=== PATIENT | male | born 1965 | race Caucasian/White ===

== ENCOUNTER → 2018-01-24 | Day surgery (SDC) | payer MEDICARE, MEDICAID ==
[2018-01-23 15:55] VITALS: BMI 23.0
[~2018-01-24] MED LIST: Ketamine 50 MG/ML VIAL ONE; Midazolam HCl 2 mg/2 ml Vial ONE; PROPOFOL 200 MG/20 ML VIAL ONE
--- NOTE | 2018-01-24 15:26 | OP ---
DATE OF PROCEDURE: 01/24/2018 PROCEDURE: Colonoscopy (diagnostic). INDICATION FOR PROCEDURE: Screening for malignant neoplasm of the colon. DESCRIPTION OF PROCEDURE: After the risks and the benefits of the procedure were explained to the constantin lombardo's surrogate including risks of bleeding, infection, perforation, reaction to anesthesia and/or pain, informed consent was obtained. The patient was then taken to the endoscopy suite where deep se dation was administered via propofol and ketamine via anesthesia support. The standard colonoscope w as then introduced into the rectum after external examination and advanced to the cecum with some dif ficulty that required manual pressure on the abdomen to facilitate passage of the scope. The quality of the prep was fair; however, with aggressive irrigation and suctioning, the prep was converted to good to excellent. The patient tolerated the procedure well with no immediate perioperative complica tions. DIGITAL RECTAL EXAMINATION: Normal rectal examination. COLON FINDINGS: A significant amount of liquid stool was seen throughout the entire colon that was a menable to aggressive irrigation and suctioning converting a fair prep to a good/excellent prep of th e mucosa seen. Normal appearing mucosa was seen at the appendiceal orifice and ileocecal valve and w ithin the cecum. Normal appearing mucosa was also seen the ascending, transverse, descending, and si gmoid colon. Normal mucosa was also seen in the rectum with normal findings on rectal retroflexion. IMPRESSION: Normal colonoscopy with no evidence of polyps or neoplasm. RECOMMENDATIONS: 1. Follow up in the GI Clinic as needed for constipation. 2. We would recommend repeat colonoscopy in 10 years as part of screening for colorectal neoplasm.
== END ==
LOC: SDC 09:58
PROVIDERS: ATTEND Internal Medicine
PROC: 0DJD8ZZ Inspection of Lower Intestinal Tract, Via Natural or Artificial Opening Endoscopic (ICD-10-PCS; principal; 2018-01-24)
DX: Z12.11 Encounter for screening for malignant neoplasm of colon (principal); G47.33 Obstructive sleep apnea (adult) (pediatric); Q87.2 Congenital malformation syndromes predominantly involving limbs; F73 Profound intellectual disabilities; F50.89 Other specified eating disorder; Z79.899 Other long term (current) drug therapy
CPT/HCPCS: J2250; J2704

== ENCOUNTER 2019-05-30 10:50 | Outpatient (CLI) | payer MEDICARE, MEDICAID | END 2019-05-30 10:51 | disposition home or self-care (01) | PROVIDERS: ATTEND Family Medicine | DX: I69.191 Dysphagia following nontraumatic intracerebral hemorrhage (principal); R13.12 Dysphagia, oropharyngeal phase; R63.3 Feeding difficulties | CPT/HCPCS: 74230 ==

== ENCOUNTER 2019-10-22 07:10 | Day surgery (SDC) | payer MEDICARE, MEDICAID ==
[2019-10-21 11:40] VITALS: BMI 20.9
[2019-10-22] MEDS ORDERED: Ketamine 50 MG/ML (10ML VIAL) ONE (08:42)
--- NOTE | 2019-10-22 11:35 | OP ---
DATE OF PROCEDURE: 10/22/2019 PROCEDURE PERFORMED: Esophagogastroduodenoscopy (diagnostic). INDICATION FOR PROCEDURE: Hematemesis (the patient with two possible bouts of hematemesis in 07/2019). DESCRIPTION OF PROCEDURE: After the risks and benefits of the procedure were explained to the patient's surrogate including risks of bleeding, infection, perforation, reactions to anesthesia, aspiration and/or pain, informed consent was obtained. The patient was then taken to the endoscopy suite, where after being placed in the left lateral decubitus position, deep sedation was administered via ketamine and propofol via Anesthesia support. Once adequate sedation was achieved, the standard gastroscope was introduced into the mouth with intubation of the esophagus, stomach, and the proximal small intestines with the findings listed below. The patient tolerated the procedure well with no immediate perioperative complications. Upon conclusion of the procedure, all equipment was removed from the patient and he was transferred to PACU in satisfactory condition. FINDINGS: Esophagus: Normal-appearing mucosa was seen in the proximal esophagus. However, in the mid and distal esophagus, multiple esophageal erosions were seen extending from 25 cm to 35 cm, but did not exhibit any evidence of ulceration or active/recent bleeding. These erosions were greater than 5 mm in size and did extend between folds, but did not encompass greater than 70% of the esophageal lumen. The diaphragmatic pinch was seen at 37 cm past the incisors while the gastroesophageal junction was seen at 35 cm past the incisors, denoting a 2 cm hiatal hernia. There was no evidence of salmon-colored mucosa extending proximally from the GE junction indicative of Wilkins's esophagus. Otherwise, there was no evidence of ulcerations, mass, lesions, or active/recent bleeding. Stomach: Normal-appearing mucosa was seen in the gastric cardia, fundus, body, greater curvature, and incisura. Mildly increased mucosal erythema was seen in the gastric antrum, but did not exhibit any erosions or ulcerations. No biopsies were taken during this examination given the extremely mild degree of mucosal erythema. Otherwise, there was no evidence of erosions, ulcerations, mass, lesions, or active/recent bleeding. On retroflexion, a small hiatal hernia was seen along with extrinsic compression of the stomach that resolved with adequate insufflation of the stomach itself. Duodenum: Normal-appearing mucosa was seen in both the duodenal bulb and second portion of the duodenum. There was no evidence of erosions, ulcerations, mass, lesions, or active/recent bleeding. IMPRESSION: 1. LA grade C reflux mediated erosive esophagitis (most likely reason for the patient's possible hematemesis months ago). 2. 2 cm hiatal hernia, which can predispose towards #1. 3. Mildly increased mucosal erythema in the gastric antrum without other associated abnormalities. RECOMMENDATIONS: 1. We would continue to monitor the patient clinically for signs of active GI bleeding. 2. We would start the patient on omeprazole 20 mg daily, 30 to 45 minutes before breakfast as part of treatment of erosive esophagitis. 3. We would maintain strict anti-reflux precautions in this patient (for example, maintaining an upright posture for 2 hours after meals, avoiding meals within 2 hours of bedtime). 4. If the patient exhibits any repeat episodes of hematemesis while on treatment, I would recommend contacting our office and grabbing a stat CBC. 5. We would have the patient follow up in the GI clinic as needed given the resolution of his hematemesis over the last four months. We would only add the omeprazole as stated above. Job ID: [id number]
[2019-10-22] MEDS ORDERED: PROPOFOL 200 MG/20 ML VIAL ONE (12:00)
[2019-10-22] MEDS ORDERED: Esmolol 100 MG/10 ML VIAL ONE (12:00)
== END 2019-10-22 10:28 | disposition home or self-care (01) ==
LOC: SDC 07:10
PROVIDERS: ATTEND Internal Medicine
PROC: 0DJ08ZZ Inspection of Upper Intestinal Tract, Via Natural or Artificial Opening Endoscopic (ICD-10-PCS; principal; 2019-10-22)
DX: K92.0 Hematemesis (principal); K21.0 Gastro-esophageal reflux disease with esophagitis; K44.9 Diaphragmatic hernia without obstruction or gangrene
CPT/HCPCS: J2704